=== PATIENT | male | born 1990 | race Caucasian/White ===

== ENCOUNTER 2021-04-29 11:50 | Emergency (ER) | payer SELFPAY ==
[2021-04-29 13:41] LABS: Absolute Lymphocytes (CBC) 1.4 K/uL (0.7-4.9); Basophils % 0.2 % (0-1.3); Hematocrit 43.5 % (39.6-49.0); MPV 8.5 fL (7.6-11.3); RBC Red Blood Cell Count 5.06 M/uL (4.33-5.43)
[2021-04-29 13:43] LABS: Protime INR 0.99
[2021-04-29 13:51] LABS: ALT/SGPT 89 U/L (12-78); AST/SGOT 77 U/L (15-37); Alkaline Phosphatase 97 U/L (45-117); BUN Blood Urea Nitrogen 17 mg/dL (7-18); Bicarbonate 30 mmol/L (21-32); Bilirubin Direct 0.7 mg/dL (0-0.2); Bilirubin Total 1.3 mg/dL (0.2-1.0); Glucose Level 110 mg/dL (74-106); NT PRO-BNP 16 pg/mL (<125); Potassium 4.4 mmol/L (3.5-5.1); Protein, Total 7.8 g/dL (6.4-8.2); Sodium Level 139 mmol/L (136-145); Troponin (Emerg Dept Use Only) < 0.02 ng/mL (0.0-0.045)
[2021-04-29] MEDS ORDERED: PANTOPRAZOLE 40 MG INJ ONE (14:20)
[2021-04-29] MEDS ORDERED: MAGNES/ALUMIN/SIMET 30ML UCUP ONE (14:20)
[2021-04-29] MEDS ORDERED: LIDOCAINE VISCOUS 2% SOLN 15 ML UDC ONE (14:20)
[2021-04-29] MEDS ORDERED: NA CHLORIDE 0.9% 1,000 ML ONE (14:20)
--- NOTE | 2021-04-29 14:43 | RAD REPORT ---
EXAM DESCRIPTION: CT - Angio Aorta For Dissection - 04/29/2021 2:17 pm CLINICAL HISTORY: Abdominal distention;Pain COMPARISON: None. TECHNIQUE: Dynamically enhanced 3 mm thick images of the chest, abdomen, and upper pelvis were obtai april during administration of approximately 150mL Isovue 370 IV contrast. Sagittal and coronal reconst ruction images were generated using MIP and reviewed. Exam utilizes a protocol to evaluate entire cou rse of the aorta. All CT scans are performed using dose optimization technique as appropriate and may include automated exposure control or mA/KV adjustment according to patient size. FINDINGS: Aorta is normal in diameter with no dissection or other acute aortic findings. Reconstruct ion images show no significant findings. Pulmonary arteries are normal as well. No cardiomegaly, pericardial thickening or pericardial effusio n. No mass or infiltrate in the lung parenchyma. No pleural thickening, pleural effusion or pneumothorax . No abnormal mediastinal or hilar mass or lymphadenopathy seen. No chest wall mass or abnormal axillar y lymphadenopathy. Celiac, SMA and renal arteries show no suspicious findings. Solid abdominal viscera and bowel show no significant findings. No mass or abnormal lymphadenopathy. No free air, free fluid or inflammatory stranding. No urinary bladder abnormality. No acute bone findings. IMPRESSION: Negative CT scan of the aorta. No other significant findings on chest, abdomen and upper pelvis examination.
--- NOTE | 2021-04-29 15:07 | RAD REPORT ---
EXAM DESCRIPTION: RAD - Chest Single View - 04/29/2021 2:37 pm CLINICAL HISTORY: CHEST PAIN COMPARISON: Two view chest April 2012 TECHNIQUE: AP portable chest image was obtained 04/29/2021 2:37 pm . FINDINGS: Lungs are clear. Heart and vasculature are normal. No measurable pleural effusion and no p neumothorax. No acute bony abnormality seen. No acute aortic findings suspected. IMPRESSION: No acute cardiopulmonary process.
[2021-04-29] MEDS ORDERED: ASPIRIN EC 81 MG TAB PO ONE (15:26)
--- NOTE | 2021-04-29 15:33 | ER ---
Nurse's Notes [facility] Name: Luly Garcia Age: 30 yrs Sex: Male : 1990 Arrival Date: 04/29/2021 Time: 11:54 Bed 16 Private MD: Diagnosis: Functional dyspepsia;Chest pain, unspecified;Abdominal tenderness Presentation: 04/29 12:39 Chief complaint: Patient states: Intermittent epigastric pain started about 0830 this jl7 morning, hurts worse with movement and deep inspiration. Coronavirus screen: Client denies travel out of the [place] in the last 14 days. At this time, the client does not indicate any symptoms associated with coronavirus-19. Ebola Screen: No symptoms or risks identified at this time. Initial Sepsis Screen: Does the patient meet any 2 criteria? No. Patient's initial sepsis screen is negative. Does the patient have a suspected source of infection? No. Patient's initial sepsis screen is negative. Risk Assessment: Do you want to hurt yourself or someone else? Patient reports no desire to harm self or others. Onset of symptoms was April 29, 2021 at 08:30. Care prior to arrival: None. 12:39 Method Of Arrival: Ambulatory jl7 12:39 Acuity: HERNAN 2 jl7 Historical: - Allergies: 12:42 No Known Allergies; jl7 - Home Meds: 12:42 None [Active]; jl7 - PMHx: 12:42 None; jl7 - PSHx: 12:42 None; jl7 - Immunization history:: Adult Immunizations unknown. - Social history:: Smoking status: Patient denies any tobacco usage or history of. - Family history:: not pertinent. - Hospitalizations: : No recent hospitalization is reported. Screenin:07 Abuse screen: Denies threats or abuse. Nutritional screening: No deficits noted. vg1 Tuberculosis screening: No symptoms or risk factors identified. Fall Risk No fall in past 12 months (0 pts). No secondary diagnosis (0 pts). IV access (20 points). Ambulatory Aid- None/Bed Rest/Nurse Assist (0 pts). Gait- Normal/Bed Rest/Wheelchair (0 pts) Mental Status- Oriented to own ability (0 pts). Total Padron Fall Scale indicates No Risk (0-24 pts). Assessment: 14:05 General: Appears in no apparent distress. comfortable, Behavior is calm, cooperative. vg1 Pain: Complains of pain in epigastric area Pain radiates to back Pain currently is 8 out of 10 on a pain scale. Pain began today. Neuro: Level of Consciousness is awake, alert, obeys commands, Oriented to person, place, time, situation. Cardiovascular: Patient's skin is warm and dry. Respiratory: Airway is patent Respiratory effort is even, unlabored. GI: Reports diarrhea, nausea, vomiting. : No signs and/or symptoms were reported regarding the genitourinary system. EENT: No signs and/or symptoms were reported regarding the EENT system. Derm: Skin is intact, is healthy with good turgor. Musculoskeletal: Circulation, motion, and sensation intact. 16:24 Reassessment: Patient appears in no apparent distress at this time. Patient and/or vg1 family updated on plan of care and expected duration. Pain level reassessed. Patient is alert, oriented x 3, equal unlabored respirations, skin warm/dry/pink. Patient denies pain at this time. Patient states feeling better. Vital Signs: 12:34 BP 132 / 81; Pulse 67; Resp 16; Temp 98.8(TE); Pulse Ox 100% on R/A; Weight 81.65 kg; jl7 Height 5 ft. 7 in. (170.18 cm); Pain 5/10; 14:30 BP 144 / 89; Pulse 67; Resp 16; Pulse Ox 100% ; vg1 16:24 BP 138 / 82; Pulse 70; Resp 16; Pulse Ox 100% ; vg1 12:34 Body Mass Index 28.19 (81.65 kg, 170.18 cm) jl7 ED Course: 11:54 Patient arrived in ED. mr 12:41 Triage completed. jl7 12:42 Arm band placed on right wrist. jl7 13:21 Brian Brice MD is Attending Physician. [facility] 13:56 Roya Dong RN is Primary Nurse. vg1 14:05 Inserted saline lock: 20 gauge in right antecubital area, using aseptic technique. vg1 ,using aseptic technique. Completed by [employer]. 14:07 Patient has correct armband on for positive identification. Bed in low position. Call vg1 light in reach. Side rails up X 1. 14:07 manager user interface on. Pulse ox on. NIBP on. vg1 14:07 Patient maintains SpO2 saturation greater than 95% on room air. vg1 14:17 CT Aorta for Dissection: ro pe/dissection In Process Unspecified. EDMS 14:37 XRAY Chest (1 view) In Process Unspecified. EDMS 15:01 Troponin (Emerg Dept Use Only) Sent. 3 15:25 US Abdomen Limited In Process Unspecified. EDFL 15:31 Zen Cornelius MD is Referral Physician. [facility] 15:31 Tatum Mccormick MD is Referral Physician. [facility] 16:23 No provider procedures requiring assistance completed. IV discontinued, intact, vg1 bleeding controlled, No redness/swelling at site. Pressure dressing applied. Administered Medications: 14:25 Drug: NS 0.9% 1000 ml Route: IV; Rate: 1 bolus; Site: right antecubital; vg1 16:25 Follow up: IV Status: Completed infusion; IV Intake: 1000ml vg1 14:26 Drug: ProTONIX (pantoprazole) 40 mg Route: IVP; Site: right antecubital; vg1 16:25 Follow up: Response: No adverse reaction; Pain is decreased vg1 14:28 Drug: GI Cocktail without - (Maalox Suspension 30 ml, Lidocaine Liquid 2 % 15 vg1 ml) Route: PO; 16:25 Follow up: Response: No adverse reaction; Pain is decreased vg1 15:11 Drug: Aspirin 162 mg Route: PO; vg1 16:25 Follow up: Response: No adverse reaction vg1 Intake: 16:25 IV: 1000ml; Total: 1000ml. vg1 Outcome: 15:33 Discharge ordered by . [facility] 16:24 Discharged to home ambulatory. vg1 16:24 Condition: stable 16:24 Discharge instructions given to patient, Instructed on discharge instructions, follow up and referral plans. medication usage, Demonstrated understanding of instructions, follow-up care, medications, Prescriptions given X 1. 16:26 Patient left the ED. vg1 Signatures: Dispatcher [employer] Brian Bowden MD MD cha Rivera, Mary mr Leal, Jahala, RN RN Alejandra Wick [facility] Roya Dong, RN RN vg1
--- NOTE | 2021-04-29 15:33 | EDPHYS ---
Physician Documentation [facility] Name: Luly Garcia Age: 30 yrs Sex: Male : 1990 Arrival Date: 04/29/2021 Time: 11:54 Bed 16 Private MD: ED Physician Brian Brice HPI: 04/29 13:47 This 30 yrs old Male presents to ER via Ambulatory with complaints of Chest mane Pain, Breathing Difficulty. 13:47 The patient or guardian reports chest pain that is located primarily in the substernal mane area, epigastric area. The pain radiates to Associated signs and symptoms: Pertinent positives: shortness of breath. The chest pain is described as sharp. Duration: The patient or guardian reports a single episode, that is now resolved. Modifying factors: The symptoms are alleviated by nothing. the symptoms are aggravated by activity. Severity of pain: At its worst the pain was moderate in the emergency department the pain is unchanged. The patient has not experienced similar symptoms in the past. Historical: - Allergies: 12:42 No Known Allergies; jl7 - Home Meds: 12:42 None [Active]; jl7 - PMHx: 12:42 None; jl7 - PSHx: 12:42 None; jl7 - Immunization history:: Adult Immunizations unknown. - Social history:: Smoking status: Patient denies any tobacco usage or history of. - Family history:: not pertinent. - Hospitalizations: : No recent hospitalization is reported. ROS: 13:47 Constitutional: Negative for fever, chills, and weight loss, Eyes: Negative for injury, mane pain, redness, and discharge, ENT: Negative for injury, pain, and discharge, Neck: Negative for injury, pain, and swelling, Respiratory: Negative for shortness of breath, cough, wheezing, and pleuritic chest pain, Back: Negative for injury and pain, : Negative for injury, bleeding, discharge, and swelling, MS/Extremity: Negative for injury and deformity, Skin: Negative for injury, rash, and discoloration, Neuro: Negative for headache, weakness, numbness, tingling, and seizure, Psych: Negative for depression, anxiety, suicide ideation, homicidal ideation, and hallucinations, Allergy/Immunology: Negative for hives, rash, and allergies, Endocrine: Negative for neck swelling, polydipsia, polyuria, polyphagia, and marked weight changes, Hematologic/Lymphatic: Negative for swollen nodes, abnormal bleeding, and unusual bruising. 13:47 Cardiovascular: Positive for chest pain, of the chest. 13:47 Abdomen/GI: Positive for abdominal pain, nausea, of the epigastric area. Exam: 13:47 Constitutional: This is a well developed, well nourished patient who is awake, alert, mane and in no acute distress. Head/Face: Normocephalic, atraumatic. Eyes: Pupils equal round and reactive to light, extra-ocular motions intact. Lids and lashes normal. Conjunctiva and sclera are non-icteric and not injected. Cornea within normal limits. Periorbital areas with no swelling, redness, or edema. ENT: Nares patent. No nasal discharge, no septal abnormalities noted. Tympanic membranes are normal and external auditory canals are clear. Oropharynx with no redness, swelling, or masses, exudates, or evidence of obstruction, uvula midline. Mucous membranes moist. Neck: Trachea midline, no thyromegaly or masses palpated, and no cervical lymphadenopathy. Supple, full range of motion without nuchal rigidity, or vertebral point tenderness. No Meningismus. Chest/axilla: Normal chest wall appearance and motion. Nontender with no deformity. No lesions are appreciated. Cardiovascular: Regular rate and rhythm with a normal S1 and S2. No gallops, murmurs, or rubs. Normal PMI, no JVD. No pulse deficits. Respiratory: Lungs have equal breath sounds bilaterally, clear to auscultation and percussion. No rales, rhonchi or wheezes noted. No increased work of breathing, no retractions or nasal flaring. Back: No spinal tenderness. No costovertebral tenderness. Full range of motion. Male : Normal genitalia with no discharge or lesions. Skin: Warm, dry with normal turgor. Normal color with no rashes, no lesions, and no evidence of cellulitis. MS/ Extremity: Pulses equal, no cyanosis. Neurovascular intact. Full, normal range of motion. Neuro: Awake and alert, GCS 15, oriented to person, place, time, and situation. Cranial nerves II-XII grossly intact. Motor strength 5/5 in all extremities. Sensory grossly intact. Cerebellar exam normal. Normal gait. Psych: Awake, alert, with orientation to person, place and time. Behavior, mood, and affect are within normal limits. 13:47 Abdomen/GI: Inspection: abdomen appears normal, Bowel sounds: normal, Palpation: soft, mild abdominal tenderness, in the epigastric area. 13:47 Musculoskeletal/extremity: Circulation is intact in all extremities. Sensation intact. Compartment Syndrome exam of affected extremity: is normal. DVT Exam: No signs of deep vein thrombosis. no pain, no swelling, no tenderness, negative Homans' sign noted on exam, no appreciated bluish discoloration, no erythema, no increased warmth. 14:49 ECG was reviewed by the Attending Physician. [facility] Vital Signs: 12:34 BP 132 / 81; Pulse 67; Resp 16; Temp 98.8(TE); Pulse Ox 100% on R/A; Weight 81.65 kg; jl7 Height 5 ft. 7 in. (170.18 cm); Pain 5/10; 14:30 BP 144 / 89; Pulse 67; Resp 16; Pulse Ox 100% ; vg1 16:24 BP 138 / 82; Pulse 70; Resp 16; Pulse Ox 100% ; vg1 12:34 Body Mass Index 28.19 (81.65 kg, 170.18 cm) jl7 MDM: 13:21 Patient medically screened. [facility] 13:50 Differential diagnosis: abnormal EKG, acute myocardial infarction, acute pericarditis, mane chest wall pain, cholecystitis, Cholelithiasis herpes zoster, hiatal hernia. 13:50 HEART Score: History: Slightly Suspicious (0), ECG: Normal (0), Age: < or = 45 years mane (0), Risk Factors:. The patient's deep vein thrombosis risk score was calculated as follows: Total Score: 0. This patient was found to be at low risk for a deep vein thrombosis by using the Well's assessment criteria. The patient's pulmonary embolism risk score was calculated as follows: Total Score: 0-2 points. This patient was found to be at low risk for a pulmonary embolism by using the Well's assessment criteria. FORTUNATO Risk Score: TOTAL SCORE = 0. Data reviewed: vital signs, nurses notes, lab test result(s), EKG, radiologic studies, CT scan, plain films. Data interpreted: monitoring engineer: rhythm is regular, Pulse oximetry: on room air is 100 %. Test interpretation: by ED physician or midlevel provider: ECG, plain radiologic studies. Counseling: I had a detailed discussion with the patient and/or guardian regarding: the historical points, exam findings, and any diagnostic results supporting the discharge/admit diagnosis, the presence of at least one elevated blood pressure reading (>120/80) during this emergency department visit, lab results, radiology results, the need for outpatient follow up. 04/29 12:58 Order name: Basic Metabolic Panel; Complete Time: 14:41 [facility] 04/29 12:58 Order name: CBC with Diff; Complete Time: 14:41 [facility] 04/29 12:58 Order name: LFT's; Complete Time: 14:41 [facility] 04/29 12:58 Order name: Magnesium; Complete Time: 14:41 [facility] 04/29 12:58 Order name: NT PRO-BNP; Complete Time: 14:41 [facility] 04/29 12:58 Order name: PT-INR; Complete Time: 14:41 [facility] 04/29 12:58 Order name: Troponin (emerg Dept Use Only); Complete Time: 14:41 [facility] 04/29 12:58 Order name: XRAY Chest (1 view); Complete Time: 15:14 [facility] 04/29 13:42 Order name: Lipase [facility] 04/29 13:42 Order name: CT Aorta for Dissection: ro pe/dissection; Complete Time: 15:14 [facility] 04/29 13:43 Order name: Lipase; Complete Time: 14:41 [facility] 04/29 14:44 Order name: US Abdomen Limited [facility] 04/29 14:50 Order name: Troponin (emerg Dept Use Only): now, 3pm [facility] 04/29 14:51 Order name: Troponin (Emerg Dept Use Only); Complete Time: 15:29 [facility] 04/29 12:58 Order name: EKG; Complete Time: 12:59 [facility] 04/29 12:58 Order name: Cardiac monitoring; Complete Time: 14:20 [facility] 04/29 12:58 Order name: EKG - Nurse/Tech; Complete Time: 12:58 [facility] 04/29 12:58 Order name: IV Saline Lock; Complete Time: 14:20 [facility] 04/29 12:58 Order name: Labs collected and sent; Complete Time: 14:01 [facility] 04/29 12:58 Order name: O2 Per Protocol; Complete Time: 13:57 [facility] 04/29 12:58 Order name: O2 Sat Monitoring; Complete Time: EC:49 Rate is 63 beats/min. Rhythm is regular. QRS [place] is Normal. TN interval is normal. QRS mane interval is normal. QT interval is normal. No Q waves. T waves are Normal. No ST changes noted. Clinical impression: NSR w/ Non-specific ST/T Changes and No evidence of ischemia. Interpreted by me. Reviewed by me. Administered Medications: 14:25 Drug: NS 0.9% 1000 ml Route: IV; Rate: 1 bolus; Site: right antecubital; vg1 16:25 Follow up: IV Status: Completed infusion; IV Intake: 1000ml vg1 14:26 Drug: ProTONIX (pantoprazole) 40 mg Route: IVP; Site: right antecubital; vg1 16:25 Follow up: Response: No adverse reaction; Pain is decreased vg1 14:28 Drug: GI Cocktail without - (Maalox Suspension 30 ml, Lidocaine Liquid 2 % 15 vg1 ml) Route: PO; 16:25 Follow up: Response: No adverse reaction; Pain is decreased vg1 15:11 Drug: Aspirin 162 mg Route: PO; vg1 16:25 Follow up: Response: No adverse reaction vg1 Disposition: 04/29/21 15:33 Discharged to Home. Impression: Functional dyspepsia, Chest pain, unspecified, Abdominal tenderness. - Condition is Stable. - Discharge Instructions: Abdominal Pain, Adult, Nonspecific Chest Pain, Indigestion, Indigestion, [id number], Aspirin and Your Heart. - Prescriptions for Protonix 40 mg Oral Tablet - take 1 tablet by ORAL route once daily; 30 tablet. - Medication Reconciliation Form, Thank You Letter, Antibiotic Education, Prescription Opioid Use form. - Follow up: Private Physician; When: 2 - 3 days; Reason: Recheck today's complaints, Continuance of care, Re-evaluation by your physician. Follow up: Zen Cornelius; When: 2 - 3 days; Reason: Recheck today's complaints, Re-evaluation by your physician. Follow up: Tatum Mccormick; When: 2 - 3 days; Reason: Recheck today's complaints, Re-evaluation by your physician. - Problem is new. - Symptoms have improved. Signatures: Dispatcher [employer] Brian Bowden MD MD cha Leal, Jahala, RN RN jl7 Roya Dong, RN RN vg1 Corrections: (The following items were deleted from the chart) 16:26 15:33 04/29/2021 15:33 Discharged to Home. Impression: Functional dyspepsia; Chest vg1 pain, unspecified; Abdominal tenderness. Condition is Stable. Discharge Instructions: Abdominal Pain, Adult, Nonspecific Chest Pain, Indigestion, Indigestion, [id number], Aspirin and Your Heart. Prescriptions for Protonix 40 mg Oral Tablet - take 1 tablet by ORAL route once daily; 30 tablet. and Forms are Medication Reconciliation Form, Thank You Letter, Antibiotic Education, Prescription Opioid Use. Follow up: Private Physician; When: 2 - 3 days; Reason: Recheck today's complaints, Continuance of care, Re-evaluation by your physician. Follow up: Zen Cornelius; When: 2 - 3 days; Reason: Recheck today's complaints, Re-evaluation by your physician. Follow up: Tatum Mccormick; When: 2 - 3 days; Reason: Recheck today's complaints, Re-evaluation by your physician. Problem is new. Symptoms have improved. mane
--- NOTE | 2021-04-29 16:05 | RAD REPORT ---
EXAM DESCRIPTION: US - Abdomen Exam Limited - 04/29/2021 3:24 pm CLINICAL HISTORY: ABD PAIN COMPARISON: Angio Aorta For Dissection dated 04/29/2021 FINDINGS: No gallstones, sludge or other abnormalities within the gallbladder lumen. Gallbladder wal l is thickened. No pericholecystic fluid seen. Increased thickness is in part due to incomplete diste ntion of the gallbladder lumen. Common bile duct is 8 mm which is greater than typically seen. No intrahepatic dilatation seen and no duct stone identifiable. IMPRESSION: Gallbladder wall thickening without stones or sludge identifiable. No pericholecystic fl uid. Extrahepatic biliary tree prominent at 8 mm. No duct stone identifiable.
[2021-04-29 16:34] VITALS: TEMP 98.8; O2SAT 100
[2021-04-29 16:37] VITALS: BP 138/82
--- NOTE | 2021-04-30 11:58 | EKG ---
Test Date: 2021-04-29 Test Time: 12:30:57 Terminal Computer Operator: HUMPHREY MEASUREMENT RESULTS: Intervals: Rate: 63 AK: 138 QRSD: 104 QT: 404 QTc: 413 [place]: P: 50 AK: 138 QRS: 94 T: 35 INTERPRETIVE STATEMENTS: Normal sinus rhythm Rightward axis Incomplete right bundle branch block Borderline ECG No previous ECG available for comparison Electronically Signed On 04-30-21 11:54:08 CDT by Zen Cornelius
== END 2021-04-29 16:26 | disposition home or self-care (01) ==
LOC: ER 11:50
DX: R07.9 Chest pain, unspecified (principal); R10.819 Abdominal tenderness, unspecified site; K30 Functional dyspepsia
CPT/HCPCS: 36415; 71045; 71275; 74175; 76705; 80048; 80076; 83690; 83735; 83880; 84484; 85025; 85610; 93005; 96361; 96374; 99285; C9113; J7030; Q9967